=== PATIENT | female | born 2000 | race Caucasian/White ===

== ENCOUNTER → 2025-03-16 15:19 | Outpatient (CLI) | payer OTHER, SELFPAY ==
[2025-03-16 18:40] LABS: Urine N gonorrhoeae NOT DETECTED
[2025-03-16 18:43] LABS: Urine Chlamydia NOT DETECTED
== END ==
LOC: LAB 15:21
PROVIDERS: PCP Family Medicine; Visit Provider Student in an Organized Health Care Education/Training Program
DX: Z11.3 Encounter for screening for infections with a predominantly sexual mode of transmission (principal)
CPT/HCPCS: 87491; 87591

== ENCOUNTER → 2025-03-16 15:40 | Outpatient (CLI) | payer OTHER, SELFPAY ==
[2025-03-16 16:29] LABS: Add Manual Diff / Slide Review NO; Basophils Absolute Auto 100 /uL (0-100); Basophils Percent Auto 0.7 % (0-2); Eosinophils Absolute Auto 100 /uL (0-450); Eosinophils Percent Auto 1.1 % (2-4); Hematocrit 35.5 % (36-46); Hemoglobin 12.6 g/dL (12.0-16.0); Lymphocytes Absolute Auto 1400 /uL (1100-4500); Lymphocytes Percent Auto 18.2 % (25-40); Mean Corpuscular HGB Conc 35.6 % (30-36); Mean Corpuscular Hemoglobin 29.6 PG (26-34); Mean Corpuscular Volume 83.1 fL (80-100); Monocytes Absolute Auto 500 /uL (0-900); Monocytes Percent Auto 6.4 % (3-14); Neutrophils Absolute Auto 5700 /uL (1500-7000); Neutrophils Percent Auto 73.6 % (50-75); Platelet Count 258 X10^3/uL (150-400); Red Blood Cell Count 4.27 X10^6/uL (4.0-5.2); Red Cell Distribution Width 13.6 % (11.6-14.8); White Blood Cell Count 7.7 X10^3/uL (4.5-11.0)
[2025-03-17 05:12] LABS: RPR Screen Non Reactive (Non Reactive)
[2025-03-17 08:39] LABS: Varicella IgG Antibody Reactive (Non Reactive)
== END ==
PROVIDERS: PCP Family Medicine; Referring Provider Student in an Organized Health Care Education/Training Program; Visit Provider Student in an Organized Health Care Education/Training Program
DX: Z34.81 Encounter for supervision of other normal pregnancy, first trimester (principal); Z11.3 Encounter for screening for infections with a predominantly sexual mode of transmission
CPT/HCPCS: 36415; 80055; 86787; 86803; 86850; 86900; 86901; 87389; 87491; 87591

== ENCOUNTER → 2025-04-20 08:44 | Outpatient (CLI) | payer OTHER, SELFPAY ==
[2025-04-20 09:48] LABS: Natera Collection Specimen Collected
== END ==
PROVIDERS: PCP Family Medicine; Referring Provider Student in an Organized Health Care Education/Training Program; Visit Provider Student in an Organized Health Care Education/Training Program
DX: Z36.0 Encounter for antenatal screening for chromosomal anomalies (principal)
CPT/HCPCS: 36415

== ENCOUNTER → 2025-06-01 06:58 | Outpatient (CLI) | payer OTHER, SELFPAY ==
--- NOTE | 2025-06-01 06:59 | DI.US.S_ITS ---
PROCEDURE: US OB >= 14 WEEKS FETUS INDICATIONS: 20 week anatomy scan OUTSIDE/PRIOR DATING DATA: Last menstrual period (LMP): 01/05/2025. LMP-based estimated date of delivery (MIRIAM): 10/12/2025. First dating scan (date and location): 03/16/2025. Estimated date of delivery (MIRIAM) from first dating scan: 10/12/2025. The calculations are made using the clinical MIRIAM of 10/12/2025. TECHNIQUE: Real-time scanning was performed of the fetus, with image documentation and biometric measurements. Endovaginal scanning: Not performed. COMPARISON: [facility], , OB <= 14 WEEKS FETUS, 03/16/2025, 15:34. FINDINGS: General: A single living intrauterine gestation is present. Presentation: Vertex. Placenta: Placental position is posterior, without previa. Amniotic fluid index: 14.8 cm, normal range is 5-24 cm. Single deepest vertical pocket is 4.2 cm. heart rate: 136 beats per minute. Maternal cervical canal: 3.1 cm long. Normal lower limit is 2.5 cm. biometrics: Biparietal diameter: 5.0 cm, 21 weeks 1 day Head circumference: 19.0 cm, 21 weeks 2 days Abdominal circumference: 17.8 cm, 22 weeks 1 day Femur length: 3.3 cm, 20 weeks 1 day Clinically estimated gestational age: 21 weeks 0 days Composite gestational age from present scan: 21 weeks 1 day Estimated weight and percentile: 410 g, 59 percentile. Anatomic survey: Neuro: Ventricles are non-dilated at less than 10 mm. Cisterna magna is normal at 3-11 mm. Cerebellum is normal in size and morphology. Nuchal skin fold: Normal at less than 6 mm between 14-21 weeks gestational age. Face: Nose and lips, facial profile are normal. Spine: No evidence for spina bifida. Heart: 4-chambered heart is present. Outflow tracts are not visualized. Diaphragm: Diaphragm is intact. Stomach: Left-sided stomach is present. Kidneys: No hydronephrosis. Normal is less than 5 mm in 2nd trimester, less than 7 mm in 3rd trimester. Cord: 3-vessel cord has orthotopic insertion. Bladder: Normal in size. Extremities: All 4 extremities identified. IMPRESSION: 1. Dotson living intrauterine at 21 weeks 1 day based on today's ultrasound. This is concordant with the prior ultrasound. There is expected interval growth. 2. Normal placenta and amniotic fluid. 3. Cardiac outflow tracts are not visualized. Otherwise normal anatomic survey. -Recommend follow-up OB ultrasound. We strive to produce accurate, complete, and clear reports of imaging services. To assist us in improving patient care, this report was composed using standard report templates and voice recognition software. Therefore, it may contain abnormal punctuation, insertions and/or omissions. Occasional wrong-word or sound-alike substitutions may occur. Though we review the report and make efforts to correct it, we do recommend that the report be read carefully in proper context to recognize any text inaccuracies. Dictated by: Priyank Hart M.D. on 06/01/2025 at 18:17 Approved by: Priyank Hart M.D. on 06/01/2025 at 18:32
== END ==
LOC: US 06:59
PROVIDERS: PCP Family Medicine; Referring Provider Student in an Organized Health Care Education/Training Program; Visit Provider Student in an Organized Health Care Education/Training Program
DX: Z34.02 Encounter for supervision of normal first pregnancy, second trimester (principal); Z3A.20 20 weeks gestation of pregnancy
CPT/HCPCS: 76811

== ENCOUNTER → 2025-07-09 08:15 | Outpatient (CLI) | payer OTHER, SELFPAY ==
[2025-07-09 09:52] LABS: Hematocrit 34.6 % (36-46); Hemoglobin 12.1 g/dL (12.0-16.0)
[2025-07-09 10:24] LABS: GTT (PREG) 1 Hour PP 50gm Dose 87 mg/dL (76-139)
== END ==
PROVIDERS: PCP Family Medicine; Referring Provider Family Medicine; Visit Provider Student in an Organized Health Care Education/Training Program
DX: O26.892 Other specified pregnancy related conditions, second trimester (principal); Z13.0 Encounter for screening for diseases of the blood and blood-forming organs and certain disorders involving the immune mechanism; Z13.1 Encounter for screening for diabetes mellitus; Z67.91 Unspecified blood type, Rh negative
CPT/HCPCS: 36415; 82950; 85014; 85018; 86850

== ENCOUNTER → 2025-09-21 14:39 | Outpatient (CLI) | payer OTHER, SELFPAY ==
[2025-09-23 14:11] LABS: Strep Grp B PCR NEG for Grp B Strep
== END ==
PROVIDERS: PCP Family Medicine; Visit Provider Obstetrics & Gynecology
DX: O09.523 Supervision of elderly multigravida, third trimester (principal)
CPT/HCPCS: 87653

== ENCOUNTER 2025-10-16 10:25 | Outpatient (CLI) | payer OTHER, SELFPAY | END 2025-10-16 11:06 | disposition home or self-care (01) | LOC: LABOR 10:30 → OB 12:02 | PROVIDERS: PCP Family Medicine; Referring Provider Obstetrics & Gynecology; Visit Provider Obstetrics & Gynecology | DX: O48.0 Post-term pregnancy (principal); Z3A.40 40 weeks gestation of pregnancy | CPT/HCPCS: 59025; G0378; G0379 ==

== ENCOUNTER 2025-10-20 01:54 | Inpatient (IN) | payer OTHER, SELFPAY ==
--- OUTSIDE RECORDS SUMMARY | 2025-07-21 01:00 | XMS_ITS ---
Author Organization [facility] Address [address] [address] Care Team Providers Care Balancer Name Role Phone Migration, Provider Unavailable Unavailable REASON FOR VISIT EMR-Haim Encounters Encounter Location Date Provider Diagnosis [facility] [address] [id number] 07/21/2025 Provider Migration Plan Of Treatment Medication Medication Name Sig Start Date Stop Date Notes Zithromax by mouth 10/19/2020 *Pick strength -form from [email or web address] for eRX* Progress Notes * MARIA R LIOB:2000 (24 yo F)Acc No.[id number]:07/21/2025 Patient: SILVIO CARBALLON :2000 A ge:24 Y S ex:Female Address:[address], [address], [place], [address] * Refills Stop Zithromax, by mouth Subjective: * Chief Complaints: * E MR-Haim * * Date:
[2025-10-20 03:28] LABS: Add Manual Diff / Slide Review NO; Hematocrit 38.7 % (36-46); Hemoglobin 13.4 g/dL (12.0-16.0); Lymphocytes Absolute Auto 1200 /uL (1100-4500); Mean Corpuscular HGB Conc 34.6 % (30-36); Mean Corpuscular Hemoglobin 29.7 PG (26-34); Mean Corpuscular Volume 85.8 fL (80-100); Platelet Count 252 X10^3/uL (150-400)
[2025-10-20] MEDS: ONDANSETRON 4 MG/2 ML INJ IV (04:35)
[2025-10-20] MEDS: LACTATED RINGERS 1,000 ML 999 ML IV ×2 (04:50→15:28)
--- NOTE | 2025-10-20 05:25 | PM.AN.REGBLK ---
Regional Block Pre-procedure Attending OB provider: Clary Lopez PMH/ROS narrative: Reviewed with patient. . See pre anesthesia eval. ASA Class: II Labs: Hct 38.7 % (36-46) 10/20/25 03:04 Plt Count 252 X10^3/uL (150-400) 10/20/25 03:04 Medications: Current Medications Generic Name Dose Route Start Last Admin Trade Name Freq PRN Reason Stop Dose Admin Calcium Carbonate 1,000 mg 10/20/25 02:47 Calcium Carbonate 500 Mg Tab PO Q2HR PRN Dyspepsia Carboprost Tromethamine 250 mcg 10/20/25 02:47 Carboprost 250 Mcg/Ml Ampul IM Q90M PRN Bleeding Fentanyl 50 mcg 10/20/25 02:47 Fentanyl 100 Mcg/2 Ml Inj IV Q1H PRN Pain, Moderate (4-6) Lactated Ringer's 1,000 mls @ 100 mls/hr 10/20/25 03:00 Lactated Ringers IV 10/20/25 12:59 CONT ALVARO Oxytocin/Lactated Ringer's 30 unit in 500 mls @ 200 mls/hr 10/20/25 02:47 Oxytocin Premix IV CONT PRN Bleeding Protocol Tranexamic Acid 1,000 mg/ 100 mls @ 600 mls/hr 10/20/25 02:47 Sodium Chloride IV NOW PRN Bleeding Oxytocin/Lactated Ringer's 30 unit in 500 mls @ 2 mls/hr 10/20/25 03:00 Oxytocin Premix IV TITRATE ALVARO Protocol 2 MILLIUNIT/MIN Lidocaine HCl 20 ml 10/20/25 02:47 Lidocaine 1% 20 Ml INJ INTRA-OP PRN Post Delivery Methylergonovine Maleate 0.2 mg 10/20/25 02:47 Methylergonovine 0.2 Mg Tablet PO Q6HR PRN Heavy Bleeding Methylergonovine Maleate 0.2 mg 10/20/25 02:47 Methylergonovine 0.2 Mg/Ml Vial IM NOW PRN Bleeding Mineral Oil 30 ml 10/20/25 02:47 Mineral Oil 30 Ml Udc TOP PRN PRN Version Misoprostol 800 mcg 10/20/25 02:47 Misoprostol 200 Mcg Tablet NJ NOW PRN Bleeding Misoprostol 400 mcg 10/20/25 02:47 Misoprostol 200 Mcg Tablet SL NOW PRN Bleeding Naloxone HCl 0.2 mg 10/20/25 02:47 Naloxone 0.4 Mg/Ml Vial IV Q2MIN PRN Opiate Reversal Ondansetron HCl 4 mg 10/20/25 02:47 10/20/25 04:35 Ondansetron 4 Mg/2 Ml Inj IV 4 mg Q4HR PRN Administration Nausea And Vomiting Oxytocin 10 unit 10/20/25 02:47 Oxytocin 10 Unit/Ml Vial IM NOW PRN Bleeding Allergies: Allergies Allergy/AdvReac Type Severity Reaction Status Date / Time No Known Drug Allergies Allergy Verified 10/20/25 04:15 Procedure Insertion date: 10/20/25 Insertion time: 05:02 Prep/Local: betadine x3 (CHG) Interspace: L4-5 Patient position: sitting Needle: 18 gauge Vinhtead (Edison) Loss of resistance with: saline KODY at (cm): 5 Catheter placed at SKIN (cm): 11 Catheter in SPACE (cm): 6 Insertion: No CSF, No Blood, No Paresthesia with insertion, No Paresthesia with injection and No Test dose reaction Initial Medications TEST DOSE time: 05:03 TEST DOSE: 1.5% lidocaine with epinephrine 1:200k (mL): 3 BOLUS DOSE time: 05:06 BOLUS DOSE (mL): 7 BOLUS DOSE med: other (Bolus with remaining test dose (2mL) diluted down with PF saline to 4cc + 3mL 1% PF lidocaine from the kit.) Infusion INFUSION: 0.125% bupivacaine and with fentanyl 2 mcg/mL Initial rate (mL/hr): 10 Subsequent interventions: Site cleaned with CHG, 3 min dry time. Sterile dressing placed. Tuohy used, no redirection required and classic KODY. Spinal needle inserted, + CSF, then spinal needle removed. Catheter threaded easily and tuohy removed. Catheter pulled back to 11. Post-procedure Anesthesia date START: 10/20/25 Anesthesia time START: 04:49 Anesthesia date END: 10/20/25 Anesthesia time END: 17:51 Post-procedure Anesthesia Assessment: Yes CV function: HR/BP stable, Yes Resp function: RR/sat/airway adequate, Yes Post-op hydration adequate, Yes Pain control adequate, Yes Nausea & vomiting absent, Yes Temperature > 36 C, Yes Mental status appropriate and Yes Anesthesia complications
[2025-10-20] MEDS: LACTATED RINGERS 1,000 ML 100 ML IV (06:51)
--- NOTE | 2025-10-20 10:48 | PM.OBHP.IH.1 ---
OB HPI Date/Time Date of admission: 10/20/25 Date Patient Seen: 10/20/25 History of Present Condition Chief complaint: NST MIRIAM Calculator Estimated Delivery Date Method Current WG Current Estimate 10/14/25 LMP (Certain) 40w 6d Other Estimates 10/12/25 Ultrasound #1 41w 1d Estimated Gestational Age (weeks): 40w6d : 1 Para: 0 Narrative: Pt is a 24yo at 40w6d here with leaking fluid. Pt reports feeling a leak around 23:00 last night. No vaginal bleeding. Contractions started shortly after. She continues to feel her baby move regularly. No complications with . care: good care, initiated at week # (9) and pounds weight gain (34) Dating criteria OB: LMP confirmed by 1st trimester US Ultrasounds: normal 1st trimester US and normal mid trimester US Obstetrical complications: none Medical complications OB: none Preadmission Labs Last OB Lab Results: Blood Type A Negative Today, 03:04 Antibody Screen Negative Today, 03:04 Hct, (36-46) 38.7 % Today, 03:04 Hgb, (12.0-16.0) 13.4 g/dL Today, 03:04 Hep Bs Antigen, (NEGATIVE) Negative s/c 03/16/25, 15:48 Hepatitis C Antibody, (NEGATIVE) Negative s/c 03/16/25, 15:48 Rubella Antibody, (>15) 49.9 IU/mL 03/16/25, 15:48 VZV IgG Antibody, (Non Reactive) Reactive 03/16/25, 15:48 Glucose 1 Hr 50 gm, (76-139) 87 mg/dL 07/09/25, 09:29 Group B Strep (PCR) Neg for grp b strep 09/21/25, 14:39 -: Chlamydia screen: negative, Gonorrhea screen: negative and Urine: negative Genetic Screens: Cell-free DNA: Normal External Labs -: Urine: negative Evaluation Evaluation Baseline heart rate: 120 Variability: Moderate (6-25) monitor accelerations: Present Monitor Decelerations: Absent Contraction Frequency (minutes): 2 Uterine Contraction Intensity: Strong/Firm Status: Category l Dilation (cm): 9 Effacement (%): 100 station: -1 Non-invasive Membranes Rupture Test: positive [facility] Medical History (Updated 04/20/25 @ 08:45 by Adelina Downs DO) Pilonidal cyst Surgical History (Updated 02/07/25 @ 13:07 by Rita Wu, RN) Theresa teeth extracted History of tonsillectomy and adenoidectomy Family History (Updated 02/07/25 @ 13:09 by Rita Wu, RN) Mother Pilonidal cyst Breast cancer Motor vehicle accident Social History marital status: number of children: 0 household members: spouse lives independently: Yes caregiver/support person: No housing: house pets and animals: Yes education level: college occupational status: employed current occupational exposures/hazards: No special crispin needs: No travel history: recent seatbelt use: always water heater temp set < 120 deg: Yes working smoke detector in home: Yes fire extinguisher in home: Yes carbon monox detector in home: Yes firearms in home: No do you feel safe at home: Yes second hand exposure: No alcohol intake: former substance use type: does not use during the past year weight has: remained stable well-balanced diet: daily or most days daily servings fruits/ve or more times/day caffeine: Yes Type(s) of exercise: walking and weight lifting Meds Home Medications and Allergies Home Medications ?Medication ?Instructions ?Recorded ?Confirmed ?Type cholecalciferol (vitamin D3) 25 25 mcg PO DAILY 02/07/25 10/20/25 History mcg (1,000 unit) capsule vitamin-ferrous sulfate 1 tab PO .1 02/07/25 10/20/25 History 27 mg iron-folic acid 0.8 mg tablet RSVPreF3 antigen-AS01E 0.5 ml IM ONCE #1 ea 09/05/25 10/20/25 Rx adjuvant(PF) 120 mcg/0.5 mL IM suspension, kit Allergies Allergy/AdvReac Type Severity Reaction Status Date / Time No Known Drug Allergies Allergy Verified 10/20/25 04:15 OB Exam Resp Effort & Inspection: normal respiratory effort Auscultation: clear to auscultation bilaterally Cardio Rate: regular rate Rhythm: regular rhythm Heart Sounds: S1 normal, S2 normal and no murmurs GI Inspection: non-distended Palpation: Yes soft and No tender Presentation: vertex Objective Labs 10/20/25 03:04 Labs: Laboratory Results - last 24 hr 10/20/25 03:04 WBC 9.0 RBC 4.51 Hgb 13.4 Hct 38.7 MCV 85.8 MCH 29.7 MCHC 34.6 RDW 13.6 Plt Count 252 Neut % (Auto) 79.0 H Lymph % (Auto) 13.0 L Dale % (Auto) 6.6 Eos % (Auto) 0.9 L Baso % (Auto) 0.5 Neut # (Auto) 7100 H Lymph # (Auto) 1200 Dale # (Auto) 600 Eos # (Auto) 100 Baso # (Auto) 0 Blood Type A Negative Antibody Screen Negative Assessment and Plan Assessment and Plan Assessment and Plan narrative: 24yo at 40w6d here in active labor with SROM at home. GBS negative, Rh negative. - Expectant management, anticipate - FHT reassuring - GBS negative, no prophylaxis indicated - Epidural in place and working well Time-Based Coding :: [TOTAL MINUTES] spent with patient and on the chart (including review of chart, obtaining history, exam, reviewing outside data, placing orders, documenting exam and treatment plan, and counseling patient) on [DATE].
[2025-10-20] MEDS: FENT 2MCG/ML BUPIV 0.125% EPI 200 MCG/100 ML PLAST..BAG 10 MCG EPIDURAL (11:00)
[2025-10-20] MEDS: OXYTOCIN PREMIX 30 UNIT/500 ML PLAST..BAG IV (14:53)
[2025-10-20] MEDS: LIDOCAINE 1% 20 ML INJ (18:00)
--- NOTE | 2025-10-20 18:24 | PM.OBPRVD ---
Labor & Delivery Delivery date: 10/20/25 Delivery Time: 17:51 Intrapartal Events: Prolonged 2nd Stage > 2.5 hours Cervical ripening method: none Induction method: none Delivery augmentation: pitocin Delivery monitor: external FHT and external uterine Route of delivery: vacuum extraction Indication for instrumentation: maternal exhaustion Episiotomy description: None L&D Laceration Description: Perineal - 2nd Degree Quantitative Blood Loss: 700 Anesthesia Type: Epidural Complications: hemorrhage Narrative: PROCEDURE: at 40w6d presented with SROM in labor and was admitted to Labor and Delivery. SROM occured at 23:00 with clear fluid.The patient progressed through the 1st stage over 15 hours. Pain was controlled with an epidural. The patient progressed through the 2nd stage over 4 hours. During the 2nd stage, amniotic fluid was noted to have changed to meconium-stained. Due to a prolonged 2nd stage with slow but steady progress, the decision was made to proceed with vacuum-assisted vaginal delivery. Patient was evaluated and noted to have adequate pain control. Patient counseled on risks/benefits/alternatives of vacuum assisted delivery. Risks were discussed and they included but were not limited to a need for an episiotomy, pressure arora on the baby, lacerations to the baby's scalp/face, serious damage including skull fracture, the need to proceed with an abdominal procedure, , paralysis of the baby's arms and/or legs, neurological impairment of the baby. Alternatives would include CS or further observation depending on status. Questions were answered and the patient verbalized an understanding and decided to proceed. Cervix completely dilated and maternal bladder emptied. Maternal pelvis was noted to be adequate. Vertex presentation in the OT position and +2 station. Moulding present, Caput present Vacuum cup of the Kiwi OmniCup applied to the flexion point without difficulty and during contractions, pressure applied between 400-600 mmHg as indicated in the green zone of the pressure gauge. Infant delivered after 4 contractions with 0 pop-offs over an intact perineum. Total duration of application of the vacuum was [] minutes. The anterior shoulder and remainder of the infant was delivered without difficulty. Cord clamped and cut. Infant handed over to NICU team. Cord gases were sent. was examined by NICU team and [] no evidence of injury noted. [Type] forceps were applied without difficulty to the head and articulated easily. Using downward traction during [] sets of contractions, the infant was delivered over intact perineum without difficulty. Total duration of forceps application was 8 minutes. The anterior shoulder and remainder of the infant was delivered without difficulty. The cord was cut and clamped after it stopped pulsating. Cephalohematoma on baby was noted that did not cross suture lines. APGARS 8/9. The placenta delivered with gentle cord traction, and appeared complete. Immediately after delivery of the placenta there was a large gush of blood. Bleeding was then controlled with fundal massage and usual pitocin. The perineum and vagina were inspected with 2nd degree perineal laceration repaired with 2-O Vicryl in the usual fashion. Needle and sponge counts were correct.? The vagina was inspected and no items were left in situ. Nora was doing well with her and her at bedside. PREPROCEDURE DIAGNOSIS: Intrauterine at 40w6d GBS negative RH negative Prolonged 2nd stage and maternal exhaustion POSTPROCEDURE DIAGNOSIS: Intrauterine at 40w6d, delivered Same as preprocedure Vacuum-assisted vaginal delivery Baby 1: Infant gender: Male Presentation: vertex Position: Transverse Placenta delivery description: Spontaneous Cord Vessel Description: 3 Vessels score (1 min): 8 score (5 min): 9 weight: 8 lb 12.6 oz Plan for aftercare: Routine care
[2025-10-20] MEDS: ACETAMINOPHEN 325 MG TABLET 650 MG PO (19:53)
[2025-10-20] MEDS: DERMOPLAST SPRAY 20% 60 ML 1 SPRAY TOP (19:54)
[2025-10-20] MEDS: LANOLIN OINT 7 GM 1 APPLIC TOP (19:54)
[2025-10-20] MEDS: IBUPROFEN 600 MG TABLET PO (21:17)
[2025-10-21] MEDS: ACETAMINOPHEN 325 MG TABLET 650 MG PO ×3 (02:29→14:41)
[2025-10-21] MEDS: IBUPROFEN 600 MG TABLET PO ×3 (02:29→14:42)
[2025-10-21 05:30] LABS: Add Manual Diff / Slide Review NO; Hematocrit 29.5 % (36-46); Hemoglobin 10.1 g/dL (12.0-16.0); Lymphocytes Absolute Auto 1300 /uL (1100-4500); Mean Corpuscular HGB Conc 34.2 % (30-36); Mean Corpuscular Hemoglobin 29.5 PG (26-34); Mean Corpuscular Volume 86.1 fL (80-100); Platelet Count 211 X10^3/uL (150-400)
[2025-10-21] MEDS: FERROUS SULFATE 325 MG TABLET PO (09:01)
[2025-10-21] MEDS: PRENATAL VIT,CALC/IRON/FOLIC 1 TABLET 1 TAB PO (09:03)
--- NOTE | 2025-10-21 13:02 | P.DS_ITS ---
Discharge Providers Provider Date of admission: 10/20/25 01:54 Discharge Date: 10/21/25 Primary care physician: Brandy Rachel DO Consults: 10/20/25 02:48 Consult to Anesthesiology Urgent Comment: Consulting Provider: Clary Lopez Reason for consultation: Epidural 10/20/25 18:55 Consult to Geospatial Applications Developer Routine Comment: Discharge provider: Clary Lopez MD Summary Hospital Course Date Patient Seen: 10/21/25 Diagnoses: Intrauterine at 40w6d GBS negative RH negative Prolonged 2nd stage and maternal exhaustion Vacuum-assisted vaginal delivery Hospital Course: The pt presented in labor with SROM. She had an epidural for pain control. She progressed to complete dilation, and made slow descent. After pushing for nearly 4hrs the decision was made to proceed with vacuum-assisted vaginal delivery. She delivered a viable baby boy. The pt bled heavily immediately after the placenta delivered, however was controlled with fundal massage and pitocin. A 2nd degree laceration was then repaired. , there were no additional complications. At the time of discharge she was voiding, ambulating, and passing flatus without difficulty. Her lochia was decreasing appropriately. Her pain was well controlled. She was with good latch. She will f/u in 6 weeks for check. Peripartum Data Infant Delivery Method: Natural Vaginal Laceration Description: Perineal - 2nd Degree Episiotomy description: None Procedures: Vacuum-assisted vaginal delivery complications: none Pinson 1: Gender: Male Disposition of : home Status at Discharge Cognitive/behavioral status at discharge: oriented Functional status at discharge: independent ambulation Overall status at discharge: patient is progressing back to baseline Time Spent with Patient Time attestation: Total time spent providing and/or coordinating discharge services: Objective Labs 10/21/25 05:10 Labs: Laboratory Results - last 24 hr 10/21/25 05:10 WBC 13.1 H RBC 3.43 L Hgb 10.1 L Hct 29.5 L MCV 86.1 MCH 29.5 MCHC 34.2 RDW 13.7 Plt Count 211 Neut % (Auto) 81.9 H Lymph % (Auto) 10.0 L Mchenry % (Auto) 6.9 Eos % (Auto) 0.8 L Baso % (Auto) 0.4 Neut # (Auto) 67619 H Lymph # (Auto) 1300 Mchenry # (Auto) 900 Eos # (Auto) 100 Baso # (Auto) 0 Maternal Bleed Negative Exam Narrative Exam Narrative: Gen: NAD, sitting comfortably in bed, appears well CV: RRR, no murmurs Resp: clear to auscultation bilaterally Abd: soft, appropriately tender, fundus firm and below the umbilicus, nondistended Ext: no edema Discharge Plan Discharge Plan Patient Disposition: Home Discharge orders & Medications Prescriptions: New sennosides [senna] 8.6 mg Tablet 17.2 mg PO BEDTIME PRN (Reason: Constipation) Qty: 15 0RF Continued vit-ferrous sulfat-FA 27 mg iron- 0.8 mg tablet 1 tab PO .1 cholecalciferol (vitamin D3) 25 mcg (1,000 unit) capsule 25 mcg PO DAILY Discontinued RSVPreF3 antigen-AS01E (PF) 120 mcg/0.5 mL suspension for reconstitution 0.5 ml IM ONCE Qty: 1 0RF Follow up/Referrals: Brandy Rachel DO [Primary Care Provider, Family Practice] Adelina Downs DO [Physician, HEADWAITER/HEADWAITRESS] - 6 Weeks Referral Note: Please call on October 22 to scheduled your 6 week follow up appointment with Dr. Downs. Diet/Activity/Treatments Diet: Diet as Tolerated and Regular Skin/Wound/Dressing Care Report to your healthcare provider any signs of infection, such as:: chills, fever, increased pain and unusual drainage Visit Report/Discharge Packet Instructions: DI for Labor and Delivery, Vaginal Stand Alone Forms: Discharge: Care, [employer], Patient Portal/API, Stroke Signs & Symptoms, Pneumococcal Vaccine Info Discharge Data Primary Care Provider: Brandy Rachel Attending Provider: Clary Lopez Admit Date/Time: 10/20/25 01:54 Discharges patient from system. Discharge Date/Time: 10/21/25 18:00
[2025-10-21 16:49] VITALS: BP 117/64; PULSE 67; RESP 16; TEMP 36.4
[2025-10-21] MEDS: RHO(D) IMMUNE GLOBULIN 1,500 UNIT SYRINGE 1500 UNIT IM (17:22)
== END 2025-10-21 18:00 | disposition home or self-care (01) | DRG 807 ==
PROVIDERS: Admitting Provider Obstetrics & Gynecology; PCP Family Medicine; Referring Provider Family Medicine; Visit Provider Family Medicine
DX: O42.02 Full-term premature rupture of membranes, onset of labor within 24 hours of rupture (principal); Z37.0 Single live birth; O63.1 Prolonged second stage (of labor); O70.1 Second degree perineal laceration during delivery; O75.81 Maternal exhaustion complicating labor and delivery; Z3A.40 40 weeks gestation of pregnancy
CPT/HCPCS: 36415; 59050; 84112; 85025; 85461; 86850; 86900; 86901; G0378; G0379; J2405; J2590; J2790; J7120